=== PATIENT | male | born 1995 | race Caucasian/White ===

== ENCOUNTER 2022-06-07 16:53 | Emergency (ER) | payer BC, SELFPAY ==
--- NOTE | ~2022-06-07 | CT_ITS ---
EXAMINATION: CT brain wo con DATE: 06/07/2022 17:53 INDICATION: Syncope . TECHNIQUE: Computed tomography (CT) of the head was performed without intravenous contrast. The mA wa s adjusted according to patient size. Iterative reconstruction technique was employed. The dose-lengt h product was 605.33 mGy-cm. COMPARISON: None. FINDINGS: No acute intracranial hemorrhage or extra-axial fluid collection. No hydrocephalus, mass, or herniation. No acute ischemic infarct. Unremarkable dural venous sinus attenuation. No acute osseous abnormality. The aerated spaces are clear. IMPRESSION: No acute intracranial process. Reviewed, dictated and finalized at location K. NG MACHINE OPERATOR
--- NOTE | 2022-06-07 17:04 | ECG_ITS ---
Measurements Intervals [place] Rate: 73 P: 8 MS: 184 QRS: 77 QRSD: 98 T: 39 QT: 370 QTc: 409 Interpretive Statements SINUS RHYTHM NORMAL ELECTROCARDIOGRAM NO PREVIOUS ECG AVAILABLE FOR COMPARISON Electronically Signed On 06-08-2022 12:37:18 MINE CAR DISPATCHER by Mauricio Kwok M.D.
[2022-06-07 17:06] VITALS: BP 98/49; PULSE 77; RESP 18; TEMP 36.2; O2SAT 98
[2022-06-07 17:22] VITALS: PULSE 77; O2SAT 100
[2022-06-07 17:26] VITALS: BP 134/77; PULSE 79; RESP 18; O2SAT 100
[2022-06-07 17:36] LABS: Basophils Percent Auto 0.5 % (0.2-1.2); Eosinophils Absolute Auto 0.1 K/mm3 (0-0.3); Eosinophils Percent Auto 0.8 % (0-4.4); Hematocrit 40.8 % (42.0-52.0); Hemoglobin 13.9 g/dL (14.0-18.0); Immature Granulocyte Absolute 0.03 K/mm3 (0.00-0.031); Immature Granulocyte Percent A 0.3 % (0-0.5); Lymphocytes Absolute Auto 3.29 K/mm3 (0.9-3.2); Lymphocytes Percent Auto 37.9 % (18.3-44.2); Mean Corpuscular HGB Conc 34.1 g/dl (32-36); Mean Corpuscular Hemoglobin 30.5 pg (26-34); Mean Corpuscular Volume 89.5 fl (80-100); Mean Platelet Volume 9.5 fl (7.4-10.4); Monocytes Absolute Auto 0.7 K/mm3 (0.1-0.6); Monocytes Percent Auto 7.5 % (2.6-8.5); Neutrophils Absolute Auto 4.6 K/mm3 (1.3-6.7); Platelet Count Result 281 k/mm3 (150-375); Red Blood Count 4.56 M/mm3 (4.6-6.20); White Blood Count 8.7 K/mm3 (4.5-10.0)
--- NOTE | 2022-06-07 17:39 | ED.GENADULT ---
HPI - General Adult General Chief complaint: Syncope Stated complaint: possible seizure (no history of) Time Seen by Provider: 06/07/22 17:19 Source: patient and family History of Present Illness HPI narrative: Patient is 26 years old white male was standing talking to the neighbors had 1 drink of beer, his neighbor was telling him about kidney surgery and the blood during the surgery, patient developed lightheadedness, nausea, then blacked out for less than 30 seconds, family tried to get him up and put him on the chair and blacked out again for less than 30 seconds and was disoriented for less than 1 minute. He denies tongue bite or urine incontinence, history of similar symptoms during blood withdrawal. Currently patient feels back to normal, denying any headache, chest pain, shortness of breath or focal neurodeficit. Patient reported to have 1 drink of beer, marijuana and did not eat his breakfast. Related Data Allergies Allergy/AdvReac Type Severity Reaction Status Date / Time No Known Allergies Allergy Unverified 06/07/22 17:33 Review of Systems Review of Systems: All systems reviewed & are unremarkable except as noted in HPI and below PMFSH Social History Social History Smoking status: Never smoker Exam Narrative: General appearance: Well-developed, well-nourished Skin: Normal color Head: Normocephalic, nontraumatic Eyes: Clear conjunctiva ENT: Oropharynx normal, ears normal, nose normal Neck: Supple, nontender Chest and respiratory: Airway patent, no respiratory distress, no accessory muscle use Heart: Regular rate/rhythm Abdomen: Soft, nontender, no organomegaly, quiet bowel sounds Vascular: Normal peripheral pulses, normal capillary refill. Musculoskeletal: Normal range of motion, nontender back Neurologic: Alert and oriented ?3, FAMILY DEVELOPMENT EXTENSION SPECIALIST is normal as tested, no gross motor deficit Course Reevaluation(s) Reevaluation #1: Currently patient feeling back to normal, and denying any symptoms and very glad to go home. Date: 06/07/22 Time: 19:05 Vital Signs Vital signs: Vital Signs Temperature 36.2 C L 06/07/22 17:06 Pulse Rate 77 06/07/22 17:06 Respiratory Rate 18 06/07/22 17:06 Blood Pressure 98/49 L 06/07/22 17:06 Pulse Oximetry 98 06/07/22 17:06 Oxygen Delivery Room Air 06/07/22 17:06 Temperature 36.2 C L 06/07/22 17:06 Pulse Rate 79 06/07/22 17:26 Respiratory Rate 18 06/07/22 17:26 Blood Pressure 134/77 06/07/22 17:26 Pulse Oximetry 100 06/07/22 17:26 Oxygen Delivery Room Air 06/07/22 17:22 Medical Decision Making Differential Diagnosis Differential Diagnosis: Vasovagal, orthostatic hypotension, electrolyte imbalance, alcohol blast marijuana side effects Medical Records Medical records narrative: Patient presents with lightheadedness, nausea and syncope while one of his friends talking to him about kidney surgery and blood. Patient had similar symptoms while having blood withdrawal. On arrival to the ED patient's symptoms resolved, and almost back to normal. He denies tongue biting or urine incontinence, seizure is extremely less likely. Vasovagal is my concern. Labs, urine drug screen, EKG, CT head ordered. Normal saline 1 L IV ordered. Patient blood pressure was 98/49 on arrival to the ED, at the time of discharge 134/77. The pt was discharged to home.the pt,s condition upon discharge was fair,education was provided to the pt in reference to the final impression,discharge study results,treatment,prognosis and need for follow up . Vital Signs Vital Signs: Vital Signs Temperature 36.2 C L 06/07/22 17:06 Pulse Rate 77 02
[2022-06-07 17:46] LABS: Alanine Aminotransferase 42 U/L (6-50); Albumin Level 4.8 g/dL (3.5-5.1); Alkaline Phosphatase 61 U/L (38-126); Anion Gap 8 mmol/L (8-16); Aspartate Amino Transferase 32 U/L (17-59); Bilirubin,Total 0.5 mg/dL (0.2-1.3); Blood Urea Nitrogen 13 mg/dL (9-20); Calcium 9.1 mg/dL (8.4-10.2); Carbon Dioxide 28 mmol/L (22-30); Chloride 105 mmol/L (98-107); Estimated CRCL calculation 120 ml/min; Estimated Glomerular Filt Rate > 60; Glucose 114 mg/dL (65-110); Potassium 3.7 mmol/L (3.4-5.0); Sodium 141 mmol/L (137-145)
[2022-06-07] MEDS: SODIUM CHLORIDE 0.9% IV 1,000 ML 999 ML IV CONT (17:57)
[2022-06-07 19:30] VITALS: BP 131/69; PULSE 77; RESP 18; TEMP 36.6; O2SAT 99
== END 2022-06-07 19:31 | disposition home or self-care (01) ==
PROVIDERS: Emergency Provider Emergency Medicine; PCP Emergency Medicine
DX: R55 Syncope and collapse (principal)
CPT/HCPCS: 36415; 70450; 80053; 85025; 93005; 96360; 99284; J7030

== ENCOUNTER 2024-05-09 08:04 | Emergency (ER) | payer BC, SELFPAY ==
--- NOTE | 2024-05-09 08:10 | ED.URI ---
HPI - URI/Sore Throat General Chief Complaint: Upper Respiratory Infection Stated Complaint: sorethroat,bilateral ear pain Time Seen by Provider: 05/09/24 08:10 Source: patient Mode of arrival: ambulatory Limitations: no limitations History of Present Illness HPI Narrative: Agustín is a 28-year-old male patient presenting to the clinic today with complaints of sore throat, fever, body aches, cough, chills, and bilateral ear pain x3 days. He reports he fell the worse yesterday and last night. Fever as high as 103 ? F per patient. Denies any chest pain or shortness of breath MD elicited complaint: sore throat and nasal congestion Related Data Home Medications ?Medication ?Instructions ?Recorded ?Confirmed ?Last Taken ?Type balsalazide 750 mg capsule mg PO 05/09/24 Unknown History Allergies Allergy/AdvReac Type Severity Reaction Status Date / Time No Known Allergies Allergy Verified 05/09/24 08:26 Review of Systems Review of Systems: Pertinent positives per HPI. Patient denies any rash, headache, visual changes, dizziness, shortness of breath, chest pain, palpitations, nausea, vomiting, diarrhea, constipation, abdominal pain, or any urinary issues. PMFSH Social History Social History Smoking status: Never smoker Comments At the time of my signature, I reviewed and agree with the nursing past medical, surgical, social, and family history. There is no relevant family history pertinent to the patient complaint. Exam Narrative: General: Well-developed, well nourished, in no apparent distress Head: Normocephalic, atraumatic Eyes: Pupils equally round and reactive to light bilaterally, EOM intact, sclera and conjunctive clear, no discharge, lids normal Ears: TMs intact and clear, ear canals clear, no drainage, grossly hearing normal. Nose: Nares patent, clear discharge, no inflammation, no sinus tenderness. Mouth: Oral pharynx red without lesions or masses, good dentition, MMM. Neck: Supple, trachea midline, no enlargement of anterior or posterior cervical nodes, no thyroid masses or goiter palpable. Cardio: Regular rate and rhythm, s1 and s2 normal, no murmur appreciated. Resp: Clear to auscultation bilaterally, no rhonchi, rales, wheezing or rubs Course Course Emergency Course: Portions of this record may have been created with voice recognition software. Level of Care: Express Care Visit Vital Signs Vital signs: Vital Signs Temperature 37.9 C H 05/09/24 08:23 Pulse Rate 108 H 05/09/24 08:23 Respiratory Rate 16 05/09/24 08:23 Blood Pressure 136/94 H 05/09/24 08:23 Pulse Oximetry 100 05/09/24 08:23 Oxygen Delivery Room Air 05/09/24 08:23 Temperature 37.9 C H 05/09/24 08:23 Pulse Rate 108 H 05/09/24 08:23 Respiratory Rate 16 05/09/24 08:23 Blood Pressure 136/94 H 05/09/24 08:23 Pulse Oximetry 100 05/09/24 08:23 Oxygen Delivery Room Air 05/09/24 08:23 Vital signs reviewed MDM - URI/Sore Throat MDM Narrative Medical decision making narrative: At the time of visit patient is resting comfortably on the exam table. Patient appears to be nontoxic. Labs: COVID, influenza, and strep test were all performed. Strep and COVID testing was negative. Influenza test was positive for influenza A. Plan: Patient has influenza A. We will send strep for culture. Supportive measures were discussed with the patient and they voiced understanding discharge instructions and agrees to treatment plan. Return precautions reviewed Differential Diagnosis Differential diagnosis: Likely upper respiratory infection, otitis media, sinusitis, viral infection, bronchitis, influenza, pharyngitis and other (COVID) Discharge Plan Discharge Clinical Impression: Influenza A Patient Disposition: Home, Self-Care Condition: Stable Instructions: Antibiotic Form, Influenza (ED) Additional Instructions: Influenza testing was positive for influenza A. COVID and strep test were negative. May take DayQuil/NyQuil for cold/flu symptoms Increase fluids and stay well hydrated Tylenol/motrin for pain/fever Flonase and OTC antihistamines as directed Vicks vapor rub to open sinuses Sinus rinses for congestion Cepacol spray, cough drops, throat lozenges, warm tea with honey/lemon, gargle salt water to soothe throat BRAT diet for diarrhea Clear liquids x 24 hours then advance as tolerated for nausea/vomiting Go to the ED if you develop a worsening in your condition- high fever not controlled by Tylenol or Motrin, dehydration, weakness, lethargy, shortness of breath, or chest pain. Follow up with your PCP in 3-5 days if symptoms persist. Patient Language: Albanian Prescriptions: No Action balsalazide 750 mg capsule PO Follow-up/Referrals: Cas Rivera MD [Primary Care Provider] - Stand Alone Forms: Work/School Release IP Time of Disposition: 08:34 Quality NIHSS Nursing Documentation ED NIHSS nursing documentation: reviewed/agree
[2024-05-09 08:23] VITALS: BP 136/94; PULSE 108; RESP 16; TEMP 37.9; O2SAT 100
[2024-05-09 08:45] LABS: EDCOVIDSCREEN Negative (Negative); EDINFLUASCREEN Negative (Negative); EDINFLUBSCREEN Negative (Negative); EDSTREPNEGPOS1 Negative (Negative)
--- OUTSIDE RECORDS SUMMARY | 2024-05-11 15:59 | XMS_ITS | Clinical Summary ---
Author Organization [facility] Address [address] [place] [address] Care Team Providers Care Head Of Business Development Name Role Phone Unavailable Primary Care Provider Unavailabl e Source Comments [facility],non-owned Affiliates and Associated Physician Practices is amultiple site organization consisting of ambulatory clinics and hospital sitesin [place], [place], [place] and [place]. This disclosure is being madepursuant to the Care Everywhere program and may not contain all information available regarding this patient. Last updated 18.[facility] Allergies No known active allergies Medications Be aware that medications may not be up to date on this document. Always verify current medications with the patient. No known medications Active Problems No known active problems Immunizations Name Administration Dates Next Due DPT 07/26/2000, 7,06/05/1996,04/03,01/31/1996 HEP A PEDS 2 DOSE 11/01/2006,12/04/2005 HEP B VACCINE, PED/ADOL 09/04/1996,01/03/1996, HIB BOOSTER 03/05/1997, 7,04/03/1996,01/30 INFLUENZA VACCINE, QUADR. (F LUZONE; FLULAVAL; FLUARIX; AFLURIA QUADRIVALENT; 6MO+), 0.5 ML (IIV4) 02/06/2014 MENINGOCOCAL MENINGITIS 10/17/2007 MENINGOCOCCAL CONJUGATE (MCV4P) 02/06/2014 MMR 07/26/2000,12/19/1996 POLIO IPV 07/26/2000 POLIO OPV 06/05/1996,04/03/1996,01/31/1996 PPD 07/26/2000,09/04/1996 TDAP (7yrs+) 12/04/2005 VARICELLA 10/17/2007,12/19/1996 Family History Medical History Relation Name Comments Diabetes Father Heart Disease Maternal Grandfather Hypertension Maternal Grandfather Cancer Maternal Grandmother kidney Hypertension Maternal Grandmother Relation Name Status Comments Father Maternal Grandfather Maternal Grandmother Social History Tobacco Use Types Packs/Day Years Used Date Smoking Tobacco: Never Smokeless Tobacco: Never Tobacco Cessation:Counseling Given: No Alcohol Use Standard Drinks/Week Comments Yes 0 (1 standard drink = 0.6 oz pur e alcohol) Sex and Gender Information Value Date Recorded Sex Assigned at Not on file Gender Identity Not on file Sexual Orientation Not on file Last Filed Vital Signs Vital Sign Reading Time Taken Comments Blood Pressure 128/70 07/08/2020 2:39 PM CDT Pulse 68 07/08/2020 2:39 PM CDT Temperature 36.8 ??C (98.3 ??F) 07/08/2020 2:39 PM CD T Respiratory Rate 20 07/08/2020 2:39 PM CDT Oxygen Saturation 99% 06/04/2020 10:05 AM CHURCH COMMUNICATIONS ADMINISTRATOR Inhaled Oxygen Concentration - - Weight 102.1 kg (225 lb) 06/04/2020 10:05 AM CHURCH COMMUNICATIONS ADMINISTRATOR Height 182.9 cm (6') 06/04/2020 10:05 AM CHURCH COMMUNICATIONS ADMINISTRATOR Body Mass Index 30.52 06/04/2020 10:05 AM CHURCH COMMUNICATIONS ADMINISTRATOR Plan of Treatment Health Maintenance Due Date Last Done Comments HIV SCREENING 11/29/2010 HEPATITIS C SCREENING 11/25/2013 DTAP/TDAP/TD VACCINES (7 - Td or Tdap) 12/05/2015 12/04/2005, 07/26/2000, 03/05/1997, Additional history exists COVID-19 VACCINE ( season) 2023 INFLUENZA VACCINE (#1) 2023 02/06/2014 DEPRESSION SCREENING 04/19/2024 ZOSTER VACCINE (1 of 2) 11/29/2045 HEPATITIS B VACCINE Completed 09/04/1996, 01/03/1996, 1995 HIB VACCINE Completed 03/05/1997, 05/20, 04/03/1996, Additional history exists MENINGOCOCCAL VACCINE Completed 02/06/2014, 008 HPV VACCINE Aged Out No longer eligi ble based on patient's age to complete this topic MENINGOCOCCAL (Group B) VACCINE Aged Out No longer eligible based on patient's age to complete this topic PNEUMOCOCCAL VACCINE Aged Out No long er eligible based on patient's age to complete this topic AGUSTÍN SAUNDERS E Personal/Famil y [address] [place] [address]
--- OUTSIDE RECORDS SUMMARY | 2024-05-11 15:59 | XMS_ITS | Clinical Summary ---
Author Organization [address] [address] Care Team Providers Care Practice Architect Name Role Phone Cas Rivera MD Primary Care Provider Allergies No known active allergies Medications balsalazide (COLAZAL) 750 mg capsule TAKE 3 CAPSULES BY MOUTH THREE TIMES DAILY for 90 Active ondansetron ODT (ZOFRAN-ODT) 4 mg disintegrating tabletIndications:V iral gastroenteritis Take 1 tablet (4 mg total) by mouth every 8 (eight) hours as needed for nausea or vomiting 20 tablet 07/26/19 24 Active Additional Information Patient not taking.Reported on 02/17/2024 Active Problems No known active problems Encounters Date Type Department Care Team Description 02/17/2024 9:24 AM CDT - 02/17/2024 11:59 PM CDT Hospital Encounter [address] [address] Non-recurrent acute suppurative otitis media of left ear without spontaneous rupture of tympanic membrane; Impacted cerumen of left ear Discharge Disposition: Discharge to home or self care 02/17/2024 8:45 AM CDT Office Visit [facility] at [address] [address] Jazmin Kim PA Non-recurrent acute suppurative otitis media of left ear without spontaneous rupture of tympanic membrane (Primary Dx); Impacted cerumen of left ear from Last 3 Months Social History Tobacco Use Types Packs/Day Years Used Date Smoking Tobacco: Never Assessed Sex and Gender Information Value Date Recorded Sex Assigned at Not on file Legal Sex Male 12:08 PM CDT Gender Identity Not on file Sexual Orientation Not on file Obstetrics History Last Filed Vital Signs Vital Sign Reading Time Taken Comments Blood Pressure 158/82 02/17/2024 8:47 AM CDT Pulse 105 02/17/2024 8:47 AM CDT Temperature 36.7 ??C (98 ??F) 02/17/2024 8:47 AM CDT Respiratory Rate 18 02/17/2024 8:47 AM CDT Oxygen Saturation 100% 02/17/2024 8:47 AM CDT Inhaled Oxygen Concentration - - Weight 102.1 kg (225 lb) 02/17/2024 8:47 AM CDT Height 182.9 cm (6') 02/17/2024 8:47 AM CDT Body Mass Index 30.52 02/17/2024 8:47 AM CDT Plan of Treatment Health Maintenance Due Date Last Done Comments Depression Screening 1995 Hepatitis C Screening 1995 Regular Well Visit/Exam 18-64 11/29/2013 Influenza Vaccine (#1) 2023 02/06/2014 DTaP/Tdap/Td Vaccine (3 - Td or Tdap) 12/17/2026 12/17/2016, 12/04/2005 Varicella Vaccines Completed 10/17/2007, 12/19/1996 HPV Vaccines Aged Out No longer eligi ble based on patient's age to complete this topic Pneumococcal vaccine <65 Aged Out No longer eligible based on patient's age to complete this topic Procedures Procedure Name Priority Date/Time Associated Diagnosis Comments THROAT CULTURE Routine 02/17/2024 9:24 AM CDT Non-recurrent acute suppurative otitis media of left ear without spontaneous rupture of tympanic membrane Impacted cerumen of left ear POCT RAPID STREP Routine 02/17/2024 9:23 AM CDT Non-recurrent acute suppurative otitis media of left ear without spontaneous rupture of tympanic membrane Impacted cerumen of left ear TX REMOVAL IMPACTED CERUMEN INSTRUMENTATION UNILAT Routine 02/17/2024 8:45 AM CDT Impacted cerumen of left ear from Last 3 Months Results * Throat culture Throat (02/17/2024 9:24 AM CDT) Report Final Report: No growth of pathogens. Comment:Testing performed by : [facility], [address], [place]., [address] Throat 02/17/2024 9:24 AM CDT 02/17/2024 8:01 PM CDT Narrative TRISHA LIN - 02/18/2024 4:26 PM CDT Testing performed by [facility] Laboratory ([phone]). Jazmin [facility] LAB MICROBIOLOGY - GENER AL ORDERABLES Final Result TRISHA [address] Department [place] [address] * POCT rapid strep A (02/17/2024 9:23 AM CDT) Rapid Strep A, POC Negative Negative Swab 02/17/2024 9:23 AM CDT Jazmin KINSEY POINT OF CARE TEST ORDER HEAVEN Final Result * TX REMOVAL IMPACTED CERUMEN INSTRUMENTATION UNILAT (02/17/2024 8:45 AM CDT) Narrative Jazmin Kim PA - 02/17/2024 8:45 AM CDT Jazmin Kim PA ? 02/17/2024 ??9:27 AM Ear Cerumen Removal Performed by: Jazmin Kim PA Authorized by: Jazmin Kim PA ?? Consent Given by: ??Patient Verbal consent obtained: Yes ?? Location: ??L ear L ear cerumen impacted?: Yes ?? L ear method of removal: ??Instrumentation and magnification L ear instrumentation: ??Curette L ear magnification: ??Otoscope Inspection: ??TM intact Patient tolerance: ??Patient tolerated the procedure well with no immediate complications Jazmin [facility] IN CLINIC/BEDSIDE ORDERA BLES Final Result from Last 3 Months Insurance [facility] ACCESS CHOICE Care Teams Practice Architect Relationship Specialty Start Date End Date Cas Rivera MD [address] [place] [address] PCP - General Family Medicine 07/26/23
--- OUTSIDE RECORDS SUMMARY | 2024-05-11 15:59 | XMS_ITS | Referral Summary ---
Author Organization [facility] Address [address] [place] [address] Care Team Providers Care Dixonac Operator Name Role Phone Unavailable Primary Care Provider Unavailabl e Source Comments [facility],non-owned Affiliates and Associated Physician Practices is amultiple site organization consisting of ambulatory clinics and hospital sitesin [place], [place], [place] and [place]. This disclosure is being madepursuant to the Care Everywhere program and may not contain all information available regarding this patient. Last updated 18.[facility] Allergies No known active allergies Medications Be [...] PPD 07/26/2000,09/04/1996 TDAP (7yrs+) 12/04/2005 VARICELLA 10/17/2007,12/19/1996 Social History Tobacco Use Types Packs/Day Years [...] CDT Oxygen Saturation 99% 06/04/2020 10:05 AM KEYBOARD ACTION ASSEMBLER Inhaled Oxygen Concentration - - Weight 102.1 kg (225 lb) 06/04/2020 10:05 AM KEYBOARD ACTION ASSEMBLER Height 182.9 cm (6') 06/04/2020 10:05 AM KEYBOARD ACTION ASSEMBLER Body Mass Index 30.52 06/04/2020 10:05 AM KEYBOARD ACTION ASSEMBLER Plan of Treatment Not on file AGUSTÍN NEGRO Personal/Famil y 1995 [address] [place] [address]
--- OUTSIDE RECORDS SUMMARY | 2024-05-11 15:59 | XMS_ITS | Referral Summary ---
Author Organization [address] [address] Care Team Providers Care Electron Microprobe Operator Name Role Phone Cas Rivera MD Primary Care Provider Encounters Date Type Department Care Team Description 02/17/2024 9:24 AM CDT - 02/17/2024 11:59 PM CDT Hospital Encounter [address] [address] Non-recurrent acute suppurative otitis media of left ear without spontaneous rupture of tympanic membrane; Impacted cerumen of left ear Discharge Disposition: Discharge to home or self care 02/17/2024 8:45 AM CDT Office Visit [facility] at [address] [address] Jazmin Kim PA Non-recurrent acute suppurative otitis media of left ear without spontaneous rupture of tympanic membrane (Primary Dx); Impacted cerumen of left ear from Last 3 Months Allergies No known active allergies Medications balsalazide [...] 02/17/2024 Active Problems No known active problems Social History Tobacco Use Types Packs/Day Years [...] 02/17/2024 8:47 AM CDT Plan of Treatment Not on file Procedures Procedure Name Priority Date/Time Associated Diagnosis Comments THROAT CULTURE Routine 02/17/2024 9:24 AM CDT Non-recurrent acute suppurative otitis media of left ear without spontaneous rupture of tympanic membrane Impacted cerumen of left ear POCT RAPID STREP Routine 02/17/2024 9:23 AM CDT Non-recurrent acute suppurative otitis media of left ear without spontaneous rupture of tympanic membrane Impacted cerumen of left ear LA REMOVAL IMPACTED CERUMEN INSTRUMENTATION UNILAT Routine 02/17/2024 8:45 AM CDT Impacted cerumen of left ear from Last 3 Months Results * Throat culture Throat (02/17/2024 9:24 AM CDT) Report Final Report: No growth of pathogens. Comment:Testing performed by : [facility], [address] [facility], [place]., [address] Throat 02/17/2024 9:24 AM CDT 02/17/2024 8:01 PM CDT Narrative CERNER CH - 02/18/2024 4:26 PM CDT Testing performed by [facility] Microbiology Laboratory ([phone]). us Jazmin [facility] MICROBIOLOGY - GENER AL ORDERABLES [place] [address] Department [place] [address] * POCT rapid strep A (02/17/2024 9:23 AM CDT) Rapid Strep A, POC Negative Negative Swab 02/17/2024 9:23 AM CDT us Jazmin [facility]INSE[facility] POINT OF CARE TEST ORDER HEAVEN Final Result * LA REMOVAL IMPACTED CERUMEN INSTRUMENTATION UNILAT (02/17/2024 8:45 [...] the procedure well with no immediate complications us Jazmin [facility] IN CLINIC/BEDSIDE ORDERA BLES Final Result from Last 3 Months Insurance [employer] ACCESS CHOICE Care Teams Electron Microprobe Operator Relationship Specialty Start Date End Date Cas Rivera MD [address] [place] [address] PCP - General Family Medicine 07/26/23
--- OUTSIDE RECORDS SUMMARY | 2024-05-11 15:59 | XMS_ITS | Continuity of Care Document ---
Author Organization [facility] Address [address] [facility] [place] [address] Phone Care Team Providers Care Test Hole Driller Name Role Phone Cas Rivera MD Unavailable Unavailable Allergies, Adverse Reactions, Alerts Substance Reaction Status Criticality No Known Allergies Active No Inform ation Medications Medication Instructions Dosage Effective Dates (start - stop) Status Comments amoxicillin 875 mg-potassium clavulanate 125 mg tablet take 1 tablet by oral route every 12 hours 1.00 tablet - Active Procedures Procedure Date PREV VISIT, [facility], AGE 18-39 OFFICE/OUTPATIENT VISIT, [facility] Advance Directives Directive Yes / No Effective Date File Name No Information Encounters Encounter Description Practice Location Reason(s) For Visit Diagnoses Date Provider Providers Copied on Encounter [facility], [address] [place], [id number], [place] tel:[phone] [facility] No Information 3 Miguel Cardozo. [address] [place], [place], [id number] , [place]. tel:[phone] PREV VISIT, NEW, AGE 18-39 [facility], [address] [place], [place], [id number], [place] tel:[phone] [facility] physical (chief complaint) Encounter for general adult medical exam w abnormal findingsOther ulcerative colitis without complicationsStrept ococcal pharyngitisDermatop hytosis of nailEssential (primary) hypertensionPrimary central sleep apnea 3 Miguel Cardozo. [address] [facility] [place], [place], [id number] , [place]. tel:[phone] Family History Family Member Type Diagnosis Age At Onset Mother Problem Hypertension Brother Problem Alive and well Father Problem Diabetes mellitus type 1 Mother Problem Alive and well Payers Payer name Insurance type Covered libertarian ID Authoriza tion(s) No Information Social History Type Description Quantity Date Captured Comments Alcohol Use Details Unknown Caffeine Use Details Unknown Tobacco Use Status No Information Smoking Status No Information Sex Male Chief Complaint And Reason For Visit No Information Plan Of Treatment Date Type Action Status No Information History Of Present Illness Encounter Date Complaint History Of Prese nt Illness physical Pt needs annual physical pt has UC. Pt takes balsalazide and doing ok Pt sees GI. Pt denies any GI symptoms. Pt c/o acute onset of sweaty, chill, muscle pain, mild headache and mild malaise, fatigue since 3-4 days ago. Pt has poor appetite. Pt has intermittent fever as high as 102.3 which was last night. Pt denies any cough or sob. Pt denies any GI symptoms. Pt has very mild scratchy throat. Pt denies any dysphagia. Pt has been taking tylenol which is working to keep the fever down. Pt states that he is feeling slightly better today Pt denies any sick contact. Pt also c/o snoring with some vague chronic fatigue. Pt c/o right big toe yellow and thickening of nail Pt denies any tog pain Instructions Date Instruction Additional Infor mation No Information Assessments Type Assessment Date No Information
--- OUTSIDE RECORDS SUMMARY | 2024-05-11 15:59 | XMS_ITS | Patient Health Summary ---
Author Organization [facility] Address [address] [place] [address] Care Team Providers Care Open Hearth Stockyard Supervisor Name Role Phone Unavailable Primary Care Provider Unavailabl e Note from [facility],non-owned Affiliates and Associated Physician Practices is amultiple site organization consisting of ambulatory clinics and hospital sitesin [place], [place], [place] and [place]. This disclosure is being madepursuant to the Care Everywhere program and may not contain all information available regarding this patient. Last updated 18.[facility] Allergies No known active allergies Medications Be aware that medications may not be up to date on this document. Always verify current medications with the patient. No known medications Active Problems No known active problems Immunizations * DPT(Given 07/26/2000, 03/05/1997, 06/05/1996, 04/03/1996, 01/31/1996) * HEP A PEDS 2 DOSE(Given 11/01/2006, 12/04/2005) * HEP B VACCINE, PED/ADOL(Given 09/04/1996, 01/03/1996, 1995) * HIB BOOSTER(Given 03/05/1997, 06/05/1996, 04/03/1996, 01/31/1996) * INFLUENZA VACCINE, QUADR. (FLUZONE; FLULAVAL; FLUARIX; AFLURIA QUADRIVALENT; 6MO+), 0.5 ML (IIV4)(Given 02/06/2014) * MENINGOCOCAL MENINGITIS(Given 10/17/2007) * MENINGOCOCCAL CONJUGATE (MCV4P)(Given 02/06/2014) * MMR(Given 07/26/2000, 12/19/1996) * POLIO IPV(Given 07/26/2000) * POLIO OPV(Given 06/05/1996, 04/03/1996, 01/31/1996) * PPD(Given 07/26/2000, 09/04/1996) * TDAP (7yrs+)(Given 12/04/2005) * VARICELLA(Given 10/17/2007, 12/19/1996) Social History Tobacco Use Types Packs/Day Years [...] CDT Oxygen Saturation 99% 06/04/2020 10:05 AM E COMMERCE RETAILER Inhaled Oxygen Concentration - - Weight 102.1 kg (225 lb) 06/04/2020 10:05 AM E COMMERCE RETAILER Height 182.9 cm (6') 06/04/2020 10:05 AM E COMMERCE RETAILER Body Mass Index 30.52 06/04/2020 10:05 AM E COMMERCE RETAILER Procedures * SARS-COV-2 (COVID-19)+INFLU A+B AG (AMB) POC(Performed 06/04/2020) Performed for Acute pharyngitis, unspecified etiology * STREP A SCREEN - POINT OF CARE (AMB) STL(Performed 06/04/2020) Performed for Acute pharyngitis, unspecified etiology * MONONUCLEOSIS SCREEN - POINT OF CARE (AMB) STL(Performed 03/23/2018) Performed for Decreased appetite * STREP A SCREEN - POINT OF CARE (AMB) STL(Performed 03/23/2018) Performed for Decreased appetite * STREP A SCREEN - POINT OF CARE (AMB) STL(Performed 02/19/2016) Performed for Sore throat * STREP A SCREEN - POINT OF CARE (AMB) STL(Performed 12/16/2015) Performed for Strep throat * STREP A SCREEN - POINT OF CARE (AMB) STL(Performed 12/16/2015) Performed for Strep throat * XR CHEST 2VW(Performed 05/08/2013) * URINALYSIS - POINT OF CARE(Performed 09/24/2009) Performed for Routine Infant or Child Health Check * CULTURE AEROBIC+GRAM STAIN(Performed 07/10/2009) Performed for Acute Pharyngitis * STREP A SCREEN - POINT OF CARE (AMB)(Performed 07/10/2009) Performed for Acute Pharyngitis Results * SARS-COV-2 (COVID-19)+INFLU A+B AG (AMB) POC (06/04/2020 10:18 AM E COMMERCE RETAILER) Influenza A Antigen Rapid Negative Negative [facility] Influenza B Antigen Rapid Negative Negative [facility] SARS-CoV-2 Ag Negative Negative [facility] COVID Internal Control Acceptable Acceptable [facility] Lot # [id number] [facility] Expiration Date 12 22 2021 [facility] Instrument Serial Number [id number] [facility] Microbiology SPECIMEN FROM NASAL FOSSAE / Unknown 06/04/2020 10:18 AM E COMMERCE RETAILER Frankie Rangel [facility] - POINT OF CA RE ORDERABLES Performing Organization Address [facility]/State/[facility] Co de Phone Number [facility] [address] [phone] * STREP A SCREEN - POINT OF CARE (AMB) STL (06/04/2020 10:18 AM E COMMERCE RETAILER) Only the most recent of5 resultswithin the time period is included. Strep A Rapid POCT Negative Negative [facility] Strep A Internal Control Present [facility] Lot # [id number] [facility] Expiration Date 04 18 2021 [facility] Throat ENTIRE THROAT (SURFACE REGION OF NECK) / Unknown 06/04/2020 10:18 AM E COMMERCE RETAILER Frankie Rangel [facility] - POINT OF CA RE ORDERABLES Performing Organization Address City/[facility]/ZIP Co de Phone [place] [address], [facility] [phone] * MONONUCLEOSIS SCREEN - POINT OF CARE (AMB) STL (03/23/2018 10:45 AM E COMMERCE RETAILER) Mononucleosis Screen POCT Negative NEGATIVE [employer] Test Internal Control Present [facility] Test Lot# [id number] [employer] Test Exp Date 06 17 2019 Blood BLOOD SPECIMEN / Unknown 03/23/2018 10:45 AM E COMMERCE RETAILER Frankie Rangel THERMOGRAPH OPERATOR-PATTERN MECHANIC LAB - POINT OF CA RE ORDERABLES * XR CHEST PA AND LATERAL (05/08/2013) Anatomical Region Laterality Modality Chest Other Emergency Physician DIAGNOSTIC IMAGING O RDERABLES * URINALYSIS - POINT OF CARE (09/24/2009 4:02 PM CDT) Clarity UA POCT clear Color UA POCT lt rafael Leukocyte UA Negative Nitrite UA POCT Negative Urobilinogen UA POCT 0.1 - 1.0 EU/dL Protein UA POCT Negative pH UA 5 5.0 - 8.0 pH units Blood UA Negtive Specific Clio UA POCT 1.020 1.002 - 1.030 Ketone UA Negative Bilirubin UA POCT Negative Glucose UA Negative Urine specimen (specimen) URINE / Unknown Roxann Del Valle MD LAB - POINT OF CARE ORDERABLES * CULTURE ROUTINE (07/10/2009 10:26 AM CDT) Aerobic Bacterial Culture Final report [facility] ACCOUNT BILL Result 1 [facility] ACCOUNT BILL Comment:Routine respiratory sultana ENTIRE PHARYNX / Unknown 07/10/2009 10:26 AM CDT 07/10/2009 8:25 PM CDT Narrative Resulting Agency Comment [facility] [address] ??[facility] [id number] Roxann Del Valle MD LAB - MICROBIOLOGY O RDERABLES [facility] ACCOUNT BILL * STREP A SCREEN - POINT OF CARE (AMB) (07/10/2009) Strep A Rapid POCT negative NEGATIVE - POSITVE Strep A Internal Control NEGATIVE - POSITIVE ENTIRE THROAT (SURFACE REGION OF NECK) / Unknown Roxann Del Valle MD LAB - POINT OF CARE ORDERABLES
--- OUTSIDE RECORDS SUMMARY | 2024-05-11 16:00 | XMS_ITS | Continuity of Care Document ---
Author Organization [facility] Address [address] [place] [address] Phone Care Team Providers Care Unmanned Aircraft Systems Roboticist Name Role Phone Cas Rivera MD Unavailable Unavailable Allergies, Adverse Reactions, Alerts Substance Reaction Status Criticality No Known Allergies Active No Inform ation Medications Medication Instructions Dosage Effective Dates (start - stop) Status Comments amoxicillin 875 mg-potassium clavulanate 125 mg tablet take 1 tablet by oral route every 12 hours 1.00 tablet - Active Procedures Procedure Date PREV VISIT, [facility], AGE 18-39 OFFICE/OUTPATIENT VISIT, [facility] Advance Directives Directive Yes / No Effective Date File Name No Information Encounters Encounter Description Practice Location Reason(s) For Visit Diagnoses Date Provider Providers Copied on Encounter [facility], [address] [place], [place], [id number], [place] tel:[phone] [facility] No Information 3 Miguel Cardozo. [address] [place], [id number] , [place]. tel:[phone] PREV VISIT, NEW, AGE 18-39 [facility], [address] [place], [place], [address], [place] tel:[phone] [facility] physical (chief complaint) Encounter for general adult medical exam w abnormal findingsOther ulcerative colitis without complicationsStrept ococcal pharyngitisDermatop hytosis of nailEssential (primary) hypertensionPrimary central sleep apnea 3 Miguel Cardozo. [email or web address] [place], [place], [address] , [place]. tel:[phone] Family History Family Member Type Diagnosis Age At Onset Mother Problem Hypertension Brother Problem Alive and well Father Problem Diabetes mellitus type 1 Mother Problem Alive and well Payers Payer name Insurance type Covered republican ID Authoriza tion(s) No Information Social History [...]
--- OUTSIDE RECORDS SUMMARY | 2024-05-11 16:00 | XMS_ITS | Clinical Summary ---
Author Organization [facility] Address [address] [address] Phone Care Team Providers Care Public Affairs Director Name Role Phone Mayo Otto MD Primary Care Provider [phone] Allergies No known active allergies Medications Probiotic Product (PROBIOTIC DAILY PO) Take by mouth. Active Active Problems Problem Noted Date Diagnosed Date Chronic ulcerative enterocolitis with rectal ble [facility] 10/10/2019 Family History Medical History Relation Name Comments Diabetes Father No Known Problems Mother Relation Name Status Comments Father Alive Mother Alive Paternal Grandmother non mal ignant tumor by optic nerve Social History Tobacco Use Types Packs/Day Years Used Date Smoking Tobacco: Former Cigarettes 0.3 1 1 04/19/2012 - 02/17/2014 Smokeless Tobacco: Never Tobacco Cessation:Counseling Given: No Alcohol Use Standard Drinks/Week Comments Yes 6 (1 standard drink = 0.6 oz pur e alcohol) AUDIT-C Answer Date Recorded Frequency of Alcohol Consumption 2-4 times a wed01/31/2019 Average Number of Drinks Not on file 019 Frequency of Binge Drinking Not on file 01/17 Sex and Gender Information Value Date Recorded Sex Assigned at Not on file Legal Sex Male 3:47 PM CDT Gender Identity Not on file Sexual Orientation Not on file Last Filed Vital Signs Vital Sign Reading Time Taken Comments Blood Pressure 118/80 10/10/2019 9:10 AM CDT Pulse 76 10/10/2019 9:10 AM CDT Temperature 36.6 ??C (97.9 ??F) 10/10/2019 9:10 AM CD T Respiratory Rate 16 10/10/2019 9:10 AM CDT Oxygen Saturation 99% 10/10/2019 9:10 AM CDT Inhaled Oxygen Concentration - - Weight 99.8 kg (220 lb) 03/11/2020 1:46 PM ESOL TEACHER ASSISTANT Height 182.9 cm (6') 03/11/2020 1:46 PM ESOL TEACHER ASSISTANT Body Mass Index 29.84 03/11/2020 1:46 PM ESOL TEACHER ASSISTANT Plan of Treatment Health Maintenance Due Date Last Done Comments Hepatitis B Immunization (1 of 3 - 19+ 3-dose series) 11/29/2014 DEXA Bone Density 03/11/2022 03/11/2020 Influenza Immunization (#1) 2023 02/06/2014 SARS-COV-2 Immunization ( season) 2023 Respiratory Syncytial Virus (RSV) Immunization (Adult) (1 - 1-dose 75+ series) 11/29/2070 Meningococcal Immunization (ACWY) Completed 014 DTaP/Tdap/Td Immunization Discontinued 12/17/2016 TdaP Immunization Completed 12/17/2016 Hepatitis C Virus (HCV) Screening Completed 019 Pneumococcal Immunization Combined Aged Out No longer eligible b ased on patient's age to complete this topic Rotavirus Immunization Aged Out No lo nger eligible based on patient's age to complete this topic Procedures Procedure Name Priority Date/Time Associated Diagnosis Comments [facility] BONE DENSITOMETRY AXIAL SKELETON Routine 03/11/2020 1:52 PM ESOL TEACHER ASSISTANT Ulcerative pancolitis with complication (HCC) HEPATITIS PANEL ACUTE (AHP) Routine 02/17/2019 11:02 AM CDT Colitis from Last 3 Months or Most Recently Relevant to Health Maintenance Results * [facility] BONE DENSITOMETRY AXIAL SKELETON (03/11/2020 1:52 PM ESOL TEACHER ASSISTANT) Anatomical Region Laterality Modality BODY N/A Other 03/11/2020 10:2 5 PM ESOL TEACHER ASSISTANT Impressions 03/11/2020 10:28 PM ESOL TEACHER ASSISTANT IMPRESSION: ?? Bone mineral density within the expected range for age. REFERENCE: ??Additional Clinical Information: Bone mineral density: Within the expected range for age (Z-score above -2.0) Below the expected range for age (Z-score is -2.0 or below) For further information, including treatment recommendations, please refer to the 2013 ISCD Official Positions (http://www.iscd.org) and the NOF's Clinician's Guide to Prevention and Treatment of Osteoporosis (http://www.nof.org/professionals/clinical-guidelines) Medical evaluation for secondary causes of low bone mineral density may be appropriate. Narrative 03/11/2020 10:28 PM [facility] EXAM DESCRIPTION: ?? [facility] BONE DENSITOMETRY AXIAL SKELETON REASON FOR STUDY: ??24-year-old male with a history of chronic ulcerative pancolitis. ??Screening for osteoporosis. Label Pinker/Model: ?? [employer] (S/N [id number]) CLINICAL INFORMATION: ??Current height: ??72 inches ? Maximum height: 72 inches ? Weight: 220 pounds Risk factors: None COMPARISON: ??None available. FINDINGS: ??Because the patient is a male under the age of 50 the results reported will be Z-scores. AP LUMBAR SPINE L1-L4: Total BMD is ??1.263 g/cm2 Z-score is -0.5 LEFT HIP: Total BMD is 1.260 g/cm2 Z-score is 0.6 Femoral neck BMD is 1.140 g/cm2 Z-score is -0.1 THIS IS AN ELECTRONICALLY VERIFIED FINAL REPORT 03/11/2020 10:25 PM - Electronically signed by River Wilburn M.D. AB: D: ??03/11/2020 10:25 PM T: ??03/11/2020 10:25 PM Report ID: [id number] Reading Location: ??[id number] Procedure Note River Wilburn MD - 03/11/2020 EXAM DESCRIPTION: [facility] BONE DENSITOMETRY AXIAL SKELETON REASON FOR STUDY: 24-year-old male with a history of chronic ulcerative pancolitis. Screening for osteoporosis. Label Pinker/Model: [employer] (S/N [id number]) CLINICAL INFORMATION: Current height: 72 inches Maximum height: 72 inches Weight: 220 pounds Risk factors: None COMPARISON: None available. FINDINGS: Because the patient is a male under the age of 50 the results reported will be Z-scores. AP LUMBAR SPINE L1-L4: Total BMD is 1.263 g/cm2 Z-score is -0.5 LEFT HIP: Total BMD is 1.260 g/cm2 Z-score is 0.6 Femoral neck BMD is 1.140 g/cm2 Z-score is -0.1 THIS IS AN ELECTRONICALLY VERIFIED FINAL REPORT 03/11/2020 10:25 PM - Electronically signed by River Wilburn M.D. AB: AB Report ID: [id number] Reading Location: [id number] IMPRESSION: Bone mineral density within the expected range for age. REFERENCE: Additional Clinical Information: Bone mineral density: Within the expected range for age (Z-score above -2.0) Below the expected range for age (Z-score is -2.0 or below) For further information, including treatment recommendations, please refer to the 2013 ISCD Official Positions (http://www.iscd.org) and the NOF's Clinician's Guide to Prevention and Treatment of Osteoporosis (http://www.nof.org/professionals/clinical-guidelines) Medical evaluation for secondary causes of low bone mineral density may be appropriate. Santana Sanchez MD IMG DEXA ORDERABLES Fin al Result * Hepatitis Panel Acute (AHP) (02/17/2019 11:02 AM CDT) HEPATITIS A IGM ANTIBODY NON DETECTED NON DETECTED 02/17/2019 9:49 PM CDT [facility] Comment: IGM Antibodies to HAV not detected. ??Does not exclude early acute or recovered HAV infection. HEP B CORE AB (IGM) NON DETECTED NON DETECTED 02/17/2019 9:49 PM CDT [facility] Comment: IGM anti-HBC not detected. ??Does not exclude the possibility of exposure to or infection with HBV. HEPATITIS B SURFACE ANTIGEN NON DETECTED NON DETECTED 02/17/2019 9:49 PM CDT [facility] Comment: A nonreactive test result does not exclude the possibility of exposure to or infection with Hepatitis B virus. A nonreactive test result in individuals with prior exposure to hepatitis B may be due to antigen levels below the detection limit of this assay or lack of antigen reactivity to the antibodies in this assay. hepatitis C antibody 0.11 <1 S/CO 02/17/2019 9:49 PM CDT [facility] Comment: Signal/Cutoff ratio ??< 0.79 is Nondetected Signal/Cutoff ratio 0.80-0.99 is Grayzone Signal/Cutoff ratio > 0.99 is Detected Supplemental assays are recommended if signal/cutoff ratio is >/=1.00. ??Signal/cutoff ratio result >/= 5.00 is 97% predictive of positivity for recombinant immunoblot assay (RIBA) and will be reported to the [place] Department of Public Health as required. Blood specimen (specimen) Venipuncture / Unknown 02/17/2019 11:02 AM CDT 02/17/2019 11:06 AM CDT us Santana Sanchez MD HEMATOLOGY ORDERABLES F inal Result [facility] [address] [place] [address], from Last 3 Months or Most Recently Relevant to Health Maintenance Insurance [facility] Care Teams Public Affairs Director Relationship Specialty Start Date End Date Mayo Otto MD [address] [place] [address] [place] [address] PCP - General Slack Cooper 01/31/19
== END 2024-05-09 08:45 | disposition home or self-care (01) ==
PROVIDERS: Emergency Provider Nurse Practitioner Family; PCP Emergency Medicine
DX: J10.1 Influenza due to other identified influenza virus with other respiratory manifestations (principal); Z20.822 Contact with and (suspected) exposure to COVID-19
CPT/HCPCS: 87081; 87426; 87804; 87880; 99213; G0463